=== PATIENT | female | born 1945 | race Caucasian/White ===

== ENCOUNTER → 2023-06-07 08:52 | Outpatient (REF) | payer MEDICARE, SELFPAY | LOC: HWWDC 08:52 | PROVIDERS: ATTENDING PHYSICIAN Internal Medicine | DX: Z12.31 Encounter for screening mammogram for malignant neoplasm of breast (principal) | CPT/HCPCS: 77063; 77067 ==

== ENCOUNTER 2023-09-12 12:08 | Emergency (ER) | payer MEDICARE, SELFPAY ==
[2023-09-12 12:17] VITALS: BP 162/96
[2023-09-12 12:56] VITALS: BP 150/106
[2023-09-12 13:00] VITALS: BP 161/74
[2023-09-12 13:10] LABS: % Basophils 1.2 % (0-2); % Eosinophils 0.7 % (0-6); % Immature Granulocytes 0.4 % (0-0.5); % Monocytes 7.1 % (1.7-9.3); % Neutrophils 69.6 % (42.2-75.2); Absolute Basophils 0.1 10^3/uL (0-0.2); Absolute Eosinophils 0.1 10^3/uL (0-0.7); Absolute Lymphocytes 1.5 10^3/uL (1.2-3.4); Absolute Monocytes 0.5 10^3/uL (0.1-0.6); Absolute Neutrophils 4.8 10^3/uL (1.4-6.5); Hematocrit 39.7 % (37.0-47.0); Hemoglobin 13.8 g/dL (12.0-16.0); Mean Corp Hgb Conc. 34.8 g/dL (33.0-37.0); Mean Corpuscular Hgb 30.7 pg (27.0-31.0); Mean Corpuscular Volume 88.2 fL (81.0-99.0); Mean Platelet Volume 11.3 fL (7.4-10.4); Nucleated Red Blood Cells % 0 %; Platelet Count 183 10^3/uL (130-400); Red Cell Dist. Width 13.6 % (11.5-14.5); White Blood Cell Count 6.9 10^3/uL (4.8-10.8)
[2023-09-12] MEDS: NSS 500 IV (13:11)
[2023-09-12 13:19] LABS: ALT (SGPT) 30 U/L (0-35); AST (SGOT) 30 U/L (14-36); Albumin 4.5 g/dl (3.5-5.0); Alkaline Phosphatase 60 U/L (38-126); Blood Urea Nitrogen 19 mg/dl (7-17); Carbon Dioxide 27 mmol/L (22-30); Chloride 105 mmol/L (98-107); Glucose 109 mg/dl (70-99); Potassium 4.4 mmol/L (3.5-5.1); Sodium 139 mmol/L (135-145); Total Bilirubin 0.7 mg/dl (0.2-1.3); Total Protein 6.9 g/dl (6.3-8.2); eGFR > 60.00
--- NOTE | 2023-09-12 13:38 | ED.GENMED ---
History of Present Illness
General
Chief Complaint: Heart Rate Problem
Time Seen by Provider: 09/12/23 12:37
History of Present Illness
History of Present Illness:
77-year-old female with history of hypertension, hyperlipidemia, and paroxysmal atrial tachycardia presents to the emergency department for evaluation of elevated heart rate for the past 2 to 3 days. It has been many years since she has last taken
any medications for her atrial tachycardia, previously underwent cardiac ablations and cardioversions greater than 15 years ago. It has been at least 5 years since she took amiodarone or sotalol. Per her cardiac follow-up visit notes she is
supposed to be taking diltiazem however she discontinued this of her own volition. Has no fevers, chills, sweats, chest pain, nausea, or vomiting
Past History
Past History
ED Past Medical History: HTN
Social History
Tobacco: Non-smoker
Alcohol: None
Drug: None
Review of Systems
Review of Systems
Allergies reviewed?: Yes
All Other Systems: ROS reviewed and negative except as documented in HPI and ROS
Phy Exam
Physical Exam
Physical Exam:
GEN: Well appearing, NAD, WDWN
HEENT: Oral mucosa moist, no scleral icterus
Cardiac: Tachycardic, irregular, no murmur
Lung: No respiratory distress, no tachypnea, lungs clear to auscultation
MSK: No gross deformity or injuries
Skin: Good color, no pallor or jaundice, no rashes
Neuro: AO x3, moves all extremities freely
Psych: Calm, cooperative
Course
Orders/Labs/Results
Orders:
Orders
09/12/23 12:12
ECG [Electrocardiogram (*1)] Urgent
Reason for Study: Tachycardia
EKG- Treatment ONCE
09/12/23 12:49
IV Insert/Care/Rem.- Treatment PRN
09/12/23 12:53
0.9% Sodium Chloride 500 ml [Nss] 500 ml IV BOLUS
Diltiazem HCl [Cardizem] 15 mg IV NOW STA
09/12/23 12:55
Complete Blood Count/With Diff Urgent
Comprehensive Metabolic Panel Urgent
Magnesium Urgent
09/12/23 15:00
Diltiazem Extended Release [Cardizem Cd] 180 mg PO NOW STA
Abnormal Lab Results
09/12/23
12:55
MPV 11.3 H fL
(7.4-10.4)
BUN 19 H mg/dl
(7-17)
Glucose 109 H mg/dl
(70-99)
09/12/23 12:55
09/12/23 12:55
Vital Signs
Initial and Last Documented VS:
Initial Vital Signs
Temp Pulse Resp BP Pulse Ox
98.3 F 128 20 162/96 97
09/12/23 12:17 09/12/23 12:17 09/12/23 12:17 09/12/23 12:17 09/12/23 12:17
Last Documented Vital Signs
Temp Pulse Resp BP Pulse Ox
98.3 F 80 22 135/61 98
09/12/23 12:17 09/12/23 15:40 09/12/23 15:40 09/12/23 15:24 09/12/23 15:40
MDM/Problems Addressed
MDM/Problems Addressed:
Patient's labs are reassuring. He was given IV diltiazem with improvement in heart rate. I discussed the case with cardiology regarding the possibility of cardioversion versus further rate control and at this time we are recommended to pursue rate
control with controlled-release diltiazem at a dose of 180 mg, this is what the patient was advised to be taking previously. No indication for anticoagulants at this time
Comment
Comment:
EKG independently interpreted by me shows an atrial tachycardia at a rate of 125
*Critical Care Note
Total Time (30-74mins, 75-104mins- exclusive of procedures): Not Applicable
ED Attending Note
-
Portions of this chart may have been created with voice recognition software.� Occasional wrong word or��sound alike� substitutions may have occurred due to the inherent limitations of voice recognition software.
Discharge Plan
Departure
Patient Disposition: Home (Routine Discharge)
Date of Disposition: 09/12/23
Time of Disposition: 15:46
Patient with high blood pressure during this ER visit?: No
Discharge Problem:
Atrial ectopic tachycardia
Instructions: Tachycardia
Prescriptions:
New
diltiazem HCl 180 mg capsule,extended release 24 hr
180 mg PO DAILY Qty: 30 0RF
Referrals:
Colton Lujan MD [Family Provider] -
Anoop Frances MD [Active] -
Interventions
Interventions:
*Risk Screen - Suicide Last Done: 09/12/23 12:47
*General Assessment Last Done: 09/12/23 12:47
*Neglect/Abuse Screening Last Done: 09/12/23 12:47
ED- Fall Risk Assessment Last Done: 09/12/23 12:47
*ED COVID-19 Vaccine History Last Done: 09/12/23 12:47
*Nursing Disposition Last Done: 09/12/23 15:54
ED- Cardiac Assessment Last Done: 09/12/23 12:47
ED- Pulmonary Assessment Last Done: 09/12/23 12:47
Discharge Date and Time
Discharge Date/Time: 09/12/23 15:54
Print Language: NIUEAN
[2023-09-12 14:16] VITALS: BP 157/83
[2023-09-12] MEDS: CARDIZEM 15 MG IV (14:17)
[2023-09-12 14:44] VITALS: BP 135/84
[2023-09-12 15:00] VITALS: BP 135/61
[2023-09-12] MEDS: CARDIZEM CD 180 MG PO (15:24)
== END 2023-09-12 15:54 | disposition home or self-care (01) ==
LOC: EMR 12:08
PROVIDERS: Physician Assistant; EMERGENCY PHYSICIAN Emergency Medicine; FAMILY PHYSICIAN Internal Medicine; OTHER PHYSICIAN Internal Medicine Cardiovascular Disease
DX: I47.19 Other supraventricular tachycardia (principal); I49.1 Atrial premature depolarization; I10 Essential (primary) hypertension
CPT/HCPCS: 99284; 96374; 80053; 83735; 85025; 93005

== ENCOUNTER 2023-09-13 08:23 | Emergency (ER) | payer MEDICARE, SELFPAY ==
[2023-09-13 08:25] VITALS: BP 142/77
--- NOTE | 2023-09-13 08:49 | ED.GENMED ---
History of Present Illness
General
Chief Complaint: Heart Rate Problem
Source: patient
Exam Limitations: none
Time Seen by Provider: 09/13/23 08:33
History of Present Illness
History of Present Illness:
See MDM
Past History
Past History
ED Past Medical History: HTN
Social History
Tobacco: Non-smoker
Alcohol: None
Drug: None
Phy Exam
Physical Exam
Physical Exam:
See MDM
Scores
[id number] Score for Afib Stroke Risk
Age in Years (65=0, 65-74=1, >/=75=2): > or = 75
Sex (Female=+1): Female
Congestive Heart Failure History (Yes=+1): No
Hypertension History (Yes=+1): Yes
Stroke/TIA/Thromboembolism History (Yes=+2): No
Vascular Disease History (Yes=+1): No
Diabetes Mellitus (Yes=+1): No
Score: 4
Anticoagulation Recommendations: Recommend anticoagulation (as validated in nonvalvular fib)
Course
Orders/Labs/Results
Orders:
Orders
09/13/23 08:28
ECG [Electrocardiogram (*1)] Urgent
Reason for Study: Tachycardia
EKG- Treatment ONCE
09/13/23 08:46
Metoprolol Xl [Toprol Xl] 25 mg PO NOW STA
09/13/23 08:58
Apixaban [Eliquis] 5 mg PO ONCE ONE
Vital Signs
Initial and Last Documented VS:
Initial Vital Signs
Temp Pulse Resp BP Pulse Ox
98.4 F 125 22 142/77 100
09/13/23 08:25 09/13/23 08:25 09/13/23 08:25 09/13/23 08:25 09/13/23 08:25
Last Documented Vital Signs
Temp Pulse Resp BP Pulse Ox
98.4 F 84 15 142/77 100
09/13/23 08:25 09/13/23 09:45 09/13/23 09:45 09/13/23 08:25 09/13/23 08:25
MDM/Problems Addressed
Differential Diagnosis Includes:
HPI and MDM Narrative:
77-year-old female presenting with recurrent palpitations. She was here last night and diagnosed with atrial tachycardia. Symptoms resolved with Cardizem so she was discharged Cardizem since she has tolerated this in the past. However, patient
states that symptoms worsened overnight. She now presents in a flutter which is going into A-fib on the monitor. She complains of palpitations but is extremely nontoxic. She is nervous to take the Cardizem. She is interested in a different
medication
Case discussed with cardiology. Given her elevated [id number] score, will start Eliquis. She was on aspirin for carotid stenosis. Discussed cessation of aspirin while on Eliquis. Will transition Cardizem to metoprolol and give her her first
dose in the emergency department and monitor
Physical exam
General: Well appearing and non-toxic
HEENT: protecting airway
Neck: appears supple
CV: No evidence of cyanosis. Regular rate, irregular rhythm
Resp: No accessory muscle use
Abd: Non-distended
Extremities: No deformities
Neuro: alert
Psych: Normal affect
Skin: Intact
Problems Addressed including Acute and Chronic Conditions affecting care:
1. New onset A-fib
Acuity: acute
Prognosis: stable
Details: Will start Eliquis given elevated [id number] score. Will start Toprol. Cardiology aware and will follow-up as an outpatient. Given that she was just here yesterday with blood work, there is low utility in repeating blood work
Updates
After prolonged observation, patient alayna well-appearing nontoxic and no recurrent episodes of tachycardia
Differential Diagnosis (but not limited to): New onset A-fib, a flutter, atrial tachycardia
Testing considered: Repeating blood work
Drug therapy (if applicable): OTC meds, please see d/c instruction regarding Rx drugs
Amount and/or Complexity of Data Reviewed
Clinical info obtained from: Patient
External data reviewed: N/A
Labs I independently reviewed (but not limited to): N/A
Radiology: N/A
Pulse Ox: not hypoxic
EKG independently reviewed: N/A
Nursing Program Chair: N/A
Critical Care: N/A
Risk of Complication:
Social Determinants of health: Good social support
Discussed with other providers: N/A
Escalation of Care includes Admit/Obs: After being observed in the Emergency Department, pt stable for discharge.
Occasional wrong word or 'sound a like' substitutions may have occurred due to the inherent limitations of voice recognition software. Read the chart carefully and recognize, using context, where substitutions have occurred.
*Critical Care Note
Total Time (30-74mins, 75-104mins- exclusive of procedures): Not Applicable
ED Attending Note
-
Portions of this chart may have been created with voice recognition software.� Occasional wrong word or��sound alike� substitutions may have occurred due to the inherent limitations of voice recognition software.
Discharge Plan
Departure
Patient Disposition: Home (Routine Discharge)
Date of Disposition: 09/13/23
Time of Disposition: 10:18
Presentation/result/management discussed w/ accepting MD/DO: Palliative Senior Np
Patient with high blood pressure during this ER visit?: No
Discharge Problem:
New onset a-fib
Instructions: Atrial Fibrillation (DC)
Prescriptions:
New
metoprolol succinate [Toprol XL] 25 mg tablet extended release 24 hr
25 mg PO DAILY Qty: 30 0RF
Eliquis 5 mg tablet
5 mg PO BID Qty: 60 0RF
No Action
diltiazem HCl 180 mg capsule,extended release 24 hr
180 mg PO DAILY Qty: 30 0RF
Activity Restrictions/Additional Instructions:
Your cardiology team is aware you were back in the emergency department today. They suggested starting the Eliquis. This is a blood thinner to decrease your stroke risk from A-fib. While you are on Eliquis, do not take aspirin. We are also
changing your rate control medicine to metoprolol. While on this medicine, do not take the diltiazem.
They will reach out to you to set up expedited outpatient follow-up.
Please return for any worsening symptoms.
You may return at any time if you have further concerns.
Thank you for choosing [facility].
Interventions
Interventions:
*Risk Screen - Suicide Last Done: 09/13/23 08:25
*General Assessment Last Done: 09/13/23 08:25
*Neglect/Abuse Screening Last Done: 09/13/23 08:25
ED- Fall Risk Assessment Last Done: 09/13/23 09:07
*ED COVID-19 Vaccine History Last Done: 09/13/23 09:07
ED- Cardiac Assessment Last Done: 09/13/23 09:07
ED- Pulmonary Assessment Last Done: 09/13/23 09:07
Discharge Date and Time
Print Language: FAROESE
[2023-09-13] MEDS: ELIQUIS 5 MG PO (09:03)
[2023-09-13] MEDS: TOPROL XL 25 MG PO (09:03)
--- NOTE | 2023-09-13 10:07 | CM ---
Addendum entered by Venita Berry 09/13/23 10:34:
CM introduced self and role. Cost was explained to patient and at bedside. They understand how the coupons work and that they will be following up with Dr. Frances.
Original Note:
CM called patient's pharmacy. Cost for Eliquis will be $549.18. No prior auth is required. Coupons were given to patient.
[2023-09-13 10:37] VITALS: BP 147/67
== END 2023-09-13 10:37 | disposition home or self-care (01) ==
LOC: EMR 08:23
PROVIDERS: EMERGENCY PHYSICIAN Student in an Organized Health Care Education/Training Program; FAMILY PHYSICIAN Internal Medicine
DX: I48.91 Unspecified atrial fibrillation (principal)
CPT/HCPCS: 99283; 93005

== ENCOUNTER → 2023-10-19 07:52 | Outpatient (REF) | payer MEDICARE, SELFPAY | LOC: WOUND 07:52 | PROVIDERS: ATTENDING PHYSICIAN Surgery; FAMILY PHYSICIAN Internal Medicine | DX: I87.312 Chronic venous hypertension (idiopathic) with ulcer of left lower extremity (principal); L97.322 Non-pressure chronic ulcer of left ankle with fat layer exposed; I87.2 Venous insufficiency (chronic) (peripheral); I10 Essential (primary) hypertension | CPT/HCPCS: 11042; 99203 ==

== ENCOUNTER → 2023-10-22 09:58 | Outpatient (REF) | payer MEDICARE, SELFPAY ==
[2023-10-22 12:23] LABS: Blood Urea Nitrogen 18 mg/dl (7-17); Calcium 9.8 mg/dl (8.4-10.2); Carbon Dioxide 35 mmol/L (22-30); Chloride 100 mmol/L (98-107); Glucose 99 mg/dl (70-99); Potassium 3.6 mmol/L (3.5-5.1); Sodium 144 mmol/L (135-145); eGFR > 60.00
== END ==
LOC: HWLAB 09:58
PROVIDERS: ATTENDING PHYSICIAN Nurse Practitioner Family
DX: R63.5 Abnormal weight gain (principal)
CPT/HCPCS: 36415; 80048

== ENCOUNTER → 2023-10-25 12:50 | Outpatient (REF) | payer MEDICARE, SELFPAY | LOC: WOUND 12:50 | PROVIDERS: ATTENDING PHYSICIAN Surgery; FAMILY PHYSICIAN Internal Medicine | DX: I87.312 Chronic venous hypertension (idiopathic) with ulcer of left lower extremity (principal); L97.322 Non-pressure chronic ulcer of left ankle with fat layer exposed; I87.2 Venous insufficiency (chronic) (peripheral); I10 Essential (primary) hypertension | CPT/HCPCS: 11042 ==

== ENCOUNTER → 2023-10-30 09:05 | Outpatient (REF) | payer MEDICARE, SELFPAY ==
[2023-10-30 12:21] LABS: INR 2.67; PT 28.8 Sec (11.4-14.6)
== END ==
LOC: HWLAB 09:05
PROVIDERS: ATTENDING PHYSICIAN Internal Medicine Cardiovascular Disease; FAMILY PHYSICIAN Internal Medicine
DX: I48.0 Paroxysmal atrial fibrillation (principal)
CPT/HCPCS: 36415; 85610

== ENCOUNTER → 2023-11-05 09:12 | Outpatient (REF) | payer MEDICARE, SELFPAY ==
[2023-11-05 12:32] LABS: INR 2.58; PT 27.6 Sec (11.4-14.6)
== END ==
LOC: HWLAB 09:12
PROVIDERS: ATTENDING PHYSICIAN Internal Medicine Cardiovascular Disease; FAMILY PHYSICIAN Internal Medicine
DX: I48.0 Paroxysmal atrial fibrillation (principal)
CPT/HCPCS: 36415; 85610

== ENCOUNTER → 2023-11-07 07:53 | Outpatient (REF) | payer MEDICARE, SELFPAY | LOC: RAD 07:53 | PROVIDERS: ATTENDING PHYSICIAN Nurse Practitioner Family | DX: L97.929 Non-pressure chronic ulcer of unspecified part of left lower leg with unspecified severity (principal); R60.0 Localized edema | CPT/HCPCS: 93970 ==

== ENCOUNTER → 2023-11-09 09:00 | Outpatient (REF) | payer MEDICARE, SELFPAY | LOC: WOUND 09:00 | PROVIDERS: ATTENDING PHYSICIAN Surgery; FAMILY PHYSICIAN Internal Medicine | DX: I87.312 Chronic venous hypertension (idiopathic) with ulcer of left lower extremity (principal); L97.322 Non-pressure chronic ulcer of left ankle with fat layer exposed; I87.2 Venous insufficiency (chronic) (peripheral); I10 Essential (primary) hypertension | CPT/HCPCS: 97597 ==

== ENCOUNTER → 2023-11-12 09:06 | Outpatient (REF) | payer MEDICARE, SELFPAY ==
[2023-11-12 12:21] LABS: % Basophils 1.1 % (0-2); % Eosinophils 3.5 % (0-6); % Immature Granulocytes 0.2 % (0-0.5); % Lymphocytes 24.1 % (20.5-51.1); % Neutrophils 60.1 % (42.2-75.2); Absolute Basophils 0.1 10^3/uL (0-0.2); Absolute Eosinophils 0.2 10^3/uL (0-0.7); Absolute Lymphocytes 1.3 10^3/uL (1.2-3.4); Absolute Monocytes 0.6 10^3/uL (0.1-0.6); Absolute Neutrophils 3.3 10^3/uL (1.4-6.5); Hematocrit 38.9 % (37.0-47.0); Mean Corp Hgb Conc. 33.4 g/dL (33.0-37.0); Mean Corpuscular Hgb 31.2 pg (27.0-31.0); Mean Corpuscular Volume 93.3 fL (81.0-99.0); Mean Platelet Volume 11.8 fL (7.4-10.4); Nucleated Red Blood Cells % 0 %; Platelet Count 171 10^3/uL (130-400); Red Blood Cell Count 4.17 10^6/uL (4.20-5.40); White Blood Cell Count 5.4 10^3/uL (4.8-10.8)
[2023-11-12 12:36] LABS: INR 2.08; PT 23.3 Sec (11.4-14.6)
== END ==
LOC: HWLAB 09:06
PROVIDERS: ATTENDING PHYSICIAN Internal Medicine Cardiovascular Disease; FAMILY PHYSICIAN Nurse Practitioner Family
DX: R59.1 Generalized enlarged lymph nodes (principal); I48.0 Paroxysmal atrial fibrillation
CPT/HCPCS: 36415; 85025; 85610

== ENCOUNTER → 2023-11-23 09:03 | Outpatient (REF) | payer MEDICARE, SELFPAY | LOC: WOUND 09:03 | PROVIDERS: ATTENDING PHYSICIAN Surgery; FAMILY PHYSICIAN Internal Medicine | DX: I87.312 Chronic venous hypertension (idiopathic) with ulcer of left lower extremity (principal); L97.322 Non-pressure chronic ulcer of left ankle with fat layer exposed; I87.2 Venous insufficiency (chronic) (peripheral); I10 Essential (primary) hypertension | CPT/HCPCS: 99212 ==

== ENCOUNTER → 2023-11-30 09:55 | Outpatient (REF) | payer MEDICARE, SELFPAY | LOC: HWRAD 09:55 | PROVIDERS: ATTENDING PHYSICIAN Nurse Practitioner Family; FAMILY PHYSICIAN Internal Medicine | DX: R59.1 Generalized enlarged lymph nodes (principal) | CPT/HCPCS: 76882 ==

== ENCOUNTER → 2023-12-10 08:34 | Outpatient (REF) | payer MEDICARE, SELFPAY ==
[2023-12-10 09:35] LABS: INR 1.71; PT 19.9 Sec (11.4-14.6)
== END ==
LOC: HWLAB 08:34
PROVIDERS: ATTENDING PHYSICIAN Internal Medicine Cardiovascular Disease; FAMILY PHYSICIAN Nurse Practitioner Family
DX: I48.0 Paroxysmal atrial fibrillation (principal)
CPT/HCPCS: 36415; 85610

== ENCOUNTER → 2023-12-17 08:48 | Outpatient (REF) | payer MEDICARE, SELFPAY ==
[2023-12-17 11:32] LABS: INR 1.84; PT 21.1 Sec (11.4-14.6)
== END ==
LOC: HWLAB 08:48
PROVIDERS: ATTENDING PHYSICIAN Internal Medicine Cardiovascular Disease; FAMILY PHYSICIAN Internal Medicine
DX: I48.0 Paroxysmal atrial fibrillation (principal)
CPT/HCPCS: 85610

== ENCOUNTER → 2023-12-25 08:15 | Outpatient (REF) | payer MEDICARE, SELFPAY ==
[2023-12-25 13:24] LABS: INR 2.55; PT 27.3 Sec (11.4-14.6)
== END ==
LOC: HWLAB 08:15
PROVIDERS: ATTENDING PHYSICIAN Internal Medicine Cardiovascular Disease; FAMILY PHYSICIAN Internal Medicine
DX: I48.0 Paroxysmal atrial fibrillation (principal)
CPT/HCPCS: 36415; 85610

== ENCOUNTER → 2023-12-31 08:59 | Outpatient (REF) | payer MEDICARE, SELFPAY | LOC: RAD 08:59 | PROVIDERS: ATTENDING PHYSICIAN Surgery Vascular Surgery; FAMILY PHYSICIAN Internal Medicine | DX: I65.23 Occlusion and stenosis of bilateral carotid arteries (principal) | CPT/HCPCS: 93880 ==

== ENCOUNTER → 2024-01-01 09:09 | Outpatient (REF) | payer MEDICARE, SELFPAY ==
[2024-01-01 13:14] LABS: INR 2.74; PT 28.9 Sec (11.4-14.6)
== END ==
LOC: HWLAB 09:09
PROVIDERS: ATTENDING PHYSICIAN Internal Medicine Cardiovascular Disease; FAMILY PHYSICIAN Internal Medicine
DX: I48.0 Paroxysmal atrial fibrillation (principal)
CPT/HCPCS: 36415; 85610

== ENCOUNTER → 2024-01-08 08:35 | Outpatient (REF) | payer MEDICARE, SELFPAY ==
[2024-01-08 12:27] LABS: INR 2.68; PT 28.5 Sec (11.4-14.6)
== END ==
LOC: HWLAB 08:35
PROVIDERS: ATTENDING PHYSICIAN Internal Medicine Cardiovascular Disease; FAMILY PHYSICIAN Internal Medicine
DX: I48.0 Paroxysmal atrial fibrillation (principal)
CPT/HCPCS: 36415; 85610

== ENCOUNTER → 2024-01-15 08:15 | Outpatient (REF) | payer MEDICARE, SELFPAY ==
[2024-01-15 09:39] LABS: INR 2.96; PT 30.7 Sec (11.4-14.6)
== END ==
LOC: HWLAB 08:15
PROVIDERS: ATTENDING PHYSICIAN Internal Medicine Cardiovascular Disease; FAMILY PHYSICIAN Internal Medicine
DX: I48.0 Paroxysmal atrial fibrillation (principal)
CPT/HCPCS: 36415; 85610

== ENCOUNTER → 2024-02-07 09:21 | Outpatient (REF) | payer MEDICARE, SELFPAY | LOC: HWEVLT 09:21 | PROVIDERS: ATTENDING PHYSICIAN Radiology Vascular & Interventional Radiology | DX: I83.892 Varicose veins of left lower extremity with other complications (principal) | CPT/HCPCS: 36478; C1769 ==

== ENCOUNTER → 2024-02-12 08:36 | Outpatient (REF) | payer MEDICARE, SELFPAY ==
[2024-02-12 09:37] LABS: INR 2.81; PT 29.6 Sec (11.4-14.6)
== END ==
LOC: HWLAB 08:36
PROVIDERS: ATTENDING PHYSICIAN Internal Medicine Cardiovascular Disease; FAMILY PHYSICIAN Internal Medicine
DX: I48.0 Paroxysmal atrial fibrillation (principal)
CPT/HCPCS: 36415; 85610

== ENCOUNTER → 2024-02-26 10:59 | Outpatient (REF) | payer MEDICARE, SELFPAY | LOC: HWEVLT 10:59 | PROVIDERS: ATTENDING PHYSICIAN Radiology Vascular & Interventional Radiology | DX: I83.892 Varicose veins of left lower extremity with other complications (principal) | CPT/HCPCS: 93971 ==

== ENCOUNTER → 2024-03-11 08:23 | Outpatient (REF) | payer MEDICARE, SELFPAY ==
[2024-03-11 09:46] LABS: INR 2.26; PT 25.1 Sec (11.4-14.6)
== END ==
LOC: HWLAB 08:23
PROVIDERS: ATTENDING PHYSICIAN Internal Medicine Cardiovascular Disease; FAMILY PHYSICIAN Internal Medicine
DX: I47.19 Other supraventricular tachycardia (principal)
CPT/HCPCS: 36415; 85610

== ENCOUNTER → 2024-03-18 13:04 | Outpatient (REF) | payer MEDICARE, SELFPAY | LOC: HWEVLT 13:04 | PROVIDERS: ATTENDING PHYSICIAN Radiology Vascular & Interventional Radiology | DX: I83.891 Varicose veins of right lower extremity with other complications (principal) | CPT/HCPCS: 36478 ==

== ENCOUNTER → 2024-04-01 11:26 | Outpatient (REF) | payer MEDICARE, SELFPAY | LOC: HWEVLT 11:26 | PROVIDERS: ATTENDING PHYSICIAN Radiology Vascular & Interventional Radiology | DX: I83.891 Varicose veins of right lower extremity with other complications (principal) | CPT/HCPCS: 93971 ==

== ENCOUNTER → 2024-04-08 08:12 | Outpatient (REF) | payer MEDICARE, SELFPAY ==
[2024-04-08 10:09] LABS: PT 25.4 Sec (11.4-14.6)
== END ==
LOC: HWLAB 08:12
PROVIDERS: ATTENDING PHYSICIAN Internal Medicine Cardiovascular Disease; FAMILY PHYSICIAN Internal Medicine
DX: I47.19 Other supraventricular tachycardia (principal)
CPT/HCPCS: 36415; 85610

== ENCOUNTER → 2024-05-06 08:07 | Outpatient (REF) | payer MEDICARE, SELFPAY ==
[2024-05-06 09:39] LABS: % Basophils 1.1 % (0-2); % Immature Granulocytes 0.4 % (0-0.5); % Lymphocytes 27.9 % (20.5-51.1); % Monocytes 10.4 % (1.7-9.3); % Neutrophils 57.2 % (42.2-75.2); Absolute Basophils 0.1 10^3/uL (0-0.2); Absolute Eosinophils 0.2 10^3/uL (0-0.7); Absolute Lymphocytes 1.5 10^3/uL (1.2-3.4); Absolute Monocytes 0.6 10^3/uL (0.1-0.6); Absolute Neutrophils 3.1 10^3/uL (1.4-6.5); Hematocrit 39.5 % (37.0-47.0); Hemoglobin 12.8 g/dL (12.0-16.0); Mean Corp Hgb Conc. 32.4 g/dL (33.0-37.0); Mean Corpuscular Hgb 29.7 pg (27.0-31.0); Mean Corpuscular Volume 91.6 fL (81.0-99.0); Mean Platelet Volume 11.5 fL (7.4-10.4); Nucleated Red Blood Cells % 0 %; Platelet Count 157 10^3/uL (130-400); Red Blood Cell Count 4.31 10^6/uL (4.20-5.40); Red Cell Dist. Width 14.6 % (11.5-14.5); White Blood Cell Count 5.4 10^3/uL (4.8-10.8)
[2024-05-06 09:45] LABS: INR 2.59; PT 27.8 Sec (11.4-14.6)
[2024-05-06 09:54] LABS: ALT (SGPT) 49 U/L (0-35); AST (SGOT) 41 U/L (14-36); Albumin 4.3 g/dl (3.5-5.0); Alkaline Phosphatase 93 U/L (38-126); Blood Urea Nitrogen 18 mg/dl (7-17); Calcium 9.6 mg/dl (8.4-10.2); Carbon Dioxide 31 mmol/L (22-30); Chloride 102 mmol/L (98-107); Glucose 100 mg/dl (70-99); HDL Cholesterol 80 mg/dl; LDL Cholesterol, Calculated 43 mg/dl; Potassium 3.6 mmol/L (3.5-5.1); Sodium 140 mmol/L (135-145); Total Cholesterol 132 mg/dl (50-199); Total Protein 6.9 g/dl (6.3-8.2); Triglyceride 47 mg/dl (10-149); Very Low Density Lipoprotein 9 mg/dl (0-30); eGFR > 60.00
[2024-05-06 10:23] LABS: TSH Reflex To Free T4 2.09 uIU/ml (0.47-4.68)
== END ==
LOC: HWLAB 08:07
PROVIDERS: ATTENDING PHYSICIAN Internal Medicine Cardiovascular Disease; FAMILY PHYSICIAN Internal Medicine
DX: I48.0 Paroxysmal atrial fibrillation (principal); I10 Essential (primary) hypertension
CPT/HCPCS: 36415; 80053; 80061; 84443; 85025; 85610

== ENCOUNTER → 2024-06-03 08:21 | Outpatient (REF) | payer MEDICARE, SELFPAY ==
[2024-06-03 09:47] LABS: PT 23.7 Sec (11.4-14.6)
== END ==
LOC: HWLAB 08:21
PROVIDERS: ATTENDING PHYSICIAN Internal Medicine Cardiovascular Disease; FAMILY PHYSICIAN Internal Medicine
DX: I47.19 Other supraventricular tachycardia (principal)
CPT/HCPCS: 36415; 85610

== ENCOUNTER → 2024-06-10 08:46 | Outpatient (REF) | payer MEDICARE, SELFPAY | LOC: HWRAD 08:46 | PROVIDERS: ATTENDING PHYSICIAN Internal Medicine | DX: Z12.31 Encounter for screening mammogram for malignant neoplasm of breast (principal); M85.80 Other specified disorders of bone density and structure, unspecified site; M81.0 Age-related osteoporosis without current pathological fracture | CPT/HCPCS: 77063; 77067; 77080 ==

== ENCOUNTER → 2024-07-01 08:25 | Outpatient (REF) | payer MEDICARE, SELFPAY ==
[2024-07-01 11:40] LABS: INR 2.06; PT 23.3 Sec (11.4-14.6)
== END ==
LOC: HWLAB 08:25
PROVIDERS: ATTENDING PHYSICIAN Internal Medicine Cardiovascular Disease; FAMILY PHYSICIAN Internal Medicine
DX: I47.19 Other supraventricular tachycardia (principal)
CPT/HCPCS: 36415; 85610

== ENCOUNTER → 2024-07-29 08:17 | Outpatient (REF) | payer MEDICARE, SELFPAY ==
[2024-07-29 10:24] LABS: INR 1.78; PT 20.9 Sec (11.4-14.6)
== END ==
LOC: HWLAB 08:17
PROVIDERS: ATTENDING PHYSICIAN Internal Medicine Cardiovascular Disease; FAMILY PHYSICIAN Internal Medicine
DX: I47.19 Other supraventricular tachycardia (principal)
CPT/HCPCS: 36415; 85610

== ENCOUNTER → 2024-08-05 08:25 | Outpatient (REF) | payer MEDICARE, SELFPAY ==
[2024-08-05 09:48] LABS: INR 2.41; PT 26.3 Sec (11.4-14.6)
== END ==
LOC: HWLAB 08:25
PROVIDERS: ATTENDING PHYSICIAN Internal Medicine Cardiovascular Disease; FAMILY PHYSICIAN Nurse Practitioner Family
DX: I47.19 Other supraventricular tachycardia (principal)
CPT/HCPCS: 36415; 85610

== ENCOUNTER → 2024-08-12 08:53 | Outpatient (REF) | payer MEDICARE, SELFPAY ==
[2024-08-12 11:47] LABS: INR 2.61; PT 27.9 Sec (11.4-14.6)
[2024-08-12 12:01] LABS: ALT (SGPT) 38 U/L (0-35); AST (SGOT) 33 U/L (14-36); Albumin 4.3 g/dl (3.5-5.0); Alkaline Phosphatase 59 U/L (38-126); Blood Urea Nitrogen 19 mg/dl (7-17); Calcium 9.7 mg/dl (8.4-10.2); Carbon Dioxide 33 mmol/L (22-30); Chloride 106 mmol/L (98-107); Glucose 94 mg/dl (70-99); Potassium 3.7 mmol/L (3.5-5.1); Sodium 143 mmol/L (135-145); Total Bilirubin 0.9 mg/dl (0.2-1.3); Total Protein 6.7 g/dl (6.3-8.2); eGFR > 60.00
[2024-08-12 12:53] LABS: Hepatitis C Antibody Negative (Negative)
== END ==
LOC: HWLAB 08:53
PROVIDERS: ATTENDING PHYSICIAN Internal Medicine Cardiovascular Disease; FAMILY PHYSICIAN Internal Medicine; REFERRING PHYSICIAN Nurse Practitioner Family
DX: I47.19 Other supraventricular tachycardia (principal); R79.89 Other specified abnormal findings of blood chemistry
CPT/HCPCS: 36415; 80053; 85610; 86803

== ENCOUNTER → 2024-08-19 08:43 | Outpatient (REF) | payer MEDICARE, SELFPAY ==
[2024-08-19 12:24] LABS: INR 2.67; PT 28.4 Sec (11.4-14.6)
== END ==
LOC: HWLAB 08:43
PROVIDERS: ATTENDING PHYSICIAN Internal Medicine Cardiovascular Disease; FAMILY PHYSICIAN Nurse Practitioner Family
DX: I47.19 Other supraventricular tachycardia (principal)
CPT/HCPCS: 36415; 85610

== ENCOUNTER → 2024-08-26 08:15 | Outpatient (REF) | payer MEDICARE, SELFPAY ==
[2024-08-26 09:46] LABS: INR 2.91; PT 30.3 Sec (11.4-14.6)
== END ==
LOC: HWLAB 08:15
PROVIDERS: ATTENDING PHYSICIAN Internal Medicine Cardiovascular Disease; FAMILY PHYSICIAN Nurse Practitioner Family
DX: I47.19 Other supraventricular tachycardia (principal)
CPT/HCPCS: 36415; 85610

== ENCOUNTER → 2024-09-23 08:15 | Outpatient (REF) | payer MEDICARE, SELFPAY ==
[2024-09-23 09:43] LABS: INR 2.32; PT 25.9 Sec (11.4-14.6)
== END ==
LOC: HWLAB 08:15
PROVIDERS: ATTENDING PHYSICIAN Nurse Practitioner Family
DX: I48.0 Paroxysmal atrial fibrillation (principal)
CPT/HCPCS: 36415; 85610

== ENCOUNTER → 2024-10-21 08:41 | Outpatient (REF) | payer MEDICARE, SELFPAY ==
[2024-10-21 12:15] LABS: INR 2.52; PT 27.2 Sec (11.4-14.6)
== END ==
LOC: HWLAB 08:41
PROVIDERS: ATTENDING PHYSICIAN Internal Medicine Cardiovascular Disease; FAMILY PHYSICIAN Nurse Practitioner Family
DX: I48.0 Paroxysmal atrial fibrillation (principal)
CPT/HCPCS: 36415; 85610

== ENCOUNTER → 2024-11-18 07:56 | Outpatient (REF) | payer MEDICARE, SELFPAY ==
[2024-11-18 10:34] LABS: INR 2.74; PT 28.9 Sec (11.4-14.6)
[2024-11-18 10:35] LABS: ALT (SGPT) 52 U/L (0-35); AST (SGOT) 47 U/L (14-36); Albumin 4.8 g/dl (3.5-5.0); Alkaline Phosphatase 80 U/L (38-126); Blood Urea Nitrogen 19 mg/dl (7-17); Calcium 9.7 mg/dl (8.4-10.2); Carbon Dioxide 29 mmol/L (22-30); Chloride 102 mmol/L (98-107); Glucose 104 mg/dl (70-99); HDL Cholesterol 83 mg/dl; LDL Cholesterol, Calculated 39 mg/dl; Potassium 4.1 mmol/L (3.5-5.1); Sodium 140 mmol/L (135-145); Total Protein 7.7 g/dl (6.3-8.2); Very Low Density Lipoprotein 11 mg/dl (0-30); eGFR > 60.00
[2024-11-18 11:00] LABS: Hematocrit 39.7 % (37.0-47.0); Hemoglobin 13.1 g/dL (12.0-16.0); Mean Corp Hgb Conc. 33.0 g/dL (33.0-37.0); Mean Corpuscular Volume 90.4 fL (81.0-99.0); Nucleated Red Blood Cells % 0 %; Platelet Count 158 10^3/uL (130-400); Red Cell Dist. Width 14.1 % (11.5-14.5)
== END ==
LOC: HWLAB 07:56
PROVIDERS: ATTENDING PHYSICIAN Internal Medicine Cardiovascular Disease; FAMILY PHYSICIAN Nurse Practitioner Family; REFERRING PHYSICIAN Surgery Vascular Surgery
DX: I48.0 Paroxysmal atrial fibrillation (principal); I10 Essential (primary) hypertension; I35.1 Nonrheumatic aortic (valve) insufficiency; I65.23 Occlusion and stenosis of bilateral carotid arteries; Z12.31 Encounter for screening mammogram for malignant neoplasm of breast; M85.80 Other specified disorders of bone density and structure, unspecified site; R94.5 Abnormal results of liver function studies
CPT/HCPCS: 36415; 80053; 80061; 84443; 85025; 85610

== ENCOUNTER → 2024-11-26 07:13 | Outpatient (REF) | payer MEDICARE, SELFPAY | LOC: HWRAD 07:13 | PROVIDERS: ATTENDING PHYSICIAN Nurse Practitioner Family | DX: R94.5 Abnormal results of liver function studies (principal) | CPT/HCPCS: 76700 ==

== ENCOUNTER → 2024-12-16 08:09 | Outpatient (REF) | payer MEDICARE, SELFPAY ==
[2024-12-16 10:48] LABS: INR 3.05; PT 31.4 Sec (11.4-14.6)
[2024-12-16 11:03] LABS: ALT (SGPT) 53 U/L (0-35); AST (SGOT) 40 U/L (14-36); Albumin 4.5 g/dl (3.5-5.0); Alkaline Phosphatase 67 U/L (38-126); Total Protein 7.0 g/dl (6.3-8.2)
== END ==
LOC: HWLAB 08:09
PROVIDERS: ATTENDING PHYSICIAN Internal Medicine Cardiovascular Disease; FAMILY PHYSICIAN Nurse Practitioner Family; REFERRING PHYSICIAN Surgery Vascular Surgery
DX: R94.5 Abnormal results of liver function studies (principal); I48.0 Paroxysmal atrial fibrillation
CPT/HCPCS: 36415; 80076; 85610

== ENCOUNTER → 2025-01-05 08:22 | Outpatient (REF) | payer MEDICARE, SELFPAY | LOC: RAD 08:22 | PROVIDERS: ATTENDING PHYSICIAN Registered Nurse; FAMILY PHYSICIAN Nurse Practitioner Family | DX: I65.23 Occlusion and stenosis of bilateral carotid arteries (principal) | CPT/HCPCS: 93880 ==

== ENCOUNTER → 2025-01-13 08:08 | Outpatient (REF) | payer MEDICARE, SELFPAY ==
[2025-01-13 10:08] LABS: INR 2.64; PT 28.2 Sec (11.4-14.6)
== END ==
LOC: HWLAB 08:08
PROVIDERS: ATTENDING PHYSICIAN Internal Medicine Cardiovascular Disease; FAMILY PHYSICIAN Nurse Practitioner Family
DX: I48.0 Paroxysmal atrial fibrillation (principal)
CPT/HCPCS: 36415; 85610

== ENCOUNTER → 2025-01-27 13:26 | Outpatient (REF) | payer MEDICARE, SELFPAY | LOC: RAD 13:26 | PROVIDERS: ATTENDING PHYSICIAN Physician Assistant; FAMILY PHYSICIAN Nurse Practitioner Family | DX: I65.23 Occlusion and stenosis of bilateral carotid arteries (principal) | CPT/HCPCS: 70496; 70498; Q9967 ==

== ENCOUNTER → 2025-02-03 09:00 | Outpatient (REF) | payer MEDICARE, SELFPAY | LOC: HWRCS 09:00 | PROVIDERS: ATTENDING PHYSICIAN Internal Medicine Cardiovascular Disease; FAMILY PHYSICIAN Nurse Practitioner Family | DX: R01.1 Cardiac murmur, unspecified (principal) | CPT/HCPCS: 93306 ==

== ENCOUNTER → 2025-02-10 07:51 | Outpatient (REF) | payer MEDICARE, SELFPAY ==
[2025-02-10 08:27] LABS: INR 2.33; PT 25.7 Sec (11.4-14.6)
== END ==
LOC: REG 07:51
PROVIDERS: ATTENDING PHYSICIAN Internal Medicine Cardiovascular Disease
DX: I47.19 Other supraventricular tachycardia (principal)
CPT/HCPCS: 36415; 85610